=== PATIENT | male | born 1965 | race Two or more races ===

== ENCOUNTER 2024-04-19 12:05 | Day surgery (SDC) | payer MEDICAID, SELFPAY ==
[2024-04-19] VITALS (11 sets, daily range): BP systolic 115–162; BP diastolic 64–79; PULSE 47–72; RESP 13–16; TEMP 36.6–37.2; O2SAT 95–99; BMI 30.4
[2024-04-19] MEDS: fentaNYL CIT INJ 50 mCg/ML AMP 2ML (ASD USE ONLY) IV (14:24)
[2024-04-19] MEDS: MIDAZOLAM INJ 1 MG/ML VIAL 2 ML (ASD USE ONLY) 2 MG IV (14:34)
== END 2024-04-19 15:38 | disposition home or self-care (01) ==
PROVIDERS: PCP Internal Medicine; Referring Provider Surgery; Visit Provider Surgery
PROC: 0DBE8ZX Excision of Large Intestine, Via Natural or Artificial Opening Endoscopic, Diagnostic (ICD-10-PCS; CPT 45380; principal; 2024-04-19 13:45)
DX: Z12.11 Encounter for screening for malignant neoplasm of colon (principal); Z86.0100 Personal history of colon polyps, unspecified; D12.3 Benign neoplasm of transverse colon
CPT/HCPCS: 45380; A4649; J2250; J3010